=== PATIENT | female | born 1965 | race Two or more races ===

== ENCOUNTER 2019-01-07 17:00 | Outpatient (AMBR) | payer MEDICARE, MEDICAID, SELFPAY ==
--- NOTE | 2018-12-30 15:11 | PT.OIERPT ---
PT OP Initial Eval Patient Information Visit Reasons: cervicalgia Medical Diagnosis: M54.2 M50.30 G89.4 Treatment Dx #1: neck pain Start of Care: 12/30/18 Date of Onset: 1 yr ago Initial Assessment Subjective Pt is 53 yr old female who c/o neck pain and stiffness x1 yr. She has difficulty turning head and 8/10 today and it gets worse by night time. She takes pain meds to control the pain and she is not working. She c/o migraines every other day and has pain with looking down. PLOF: pt didn't have pain with turning the head or ADL's. PMH: HTN, OA almost everywhere sciatica, sleep apnea, R foot bone spur, migraines Imaging: with provider Pt goal: less neck pain feel better Objective C/S AROM: Ext 10% Flexion 75% L rotation: 50 deg, R rot 55 deg B SB: 15 deg C/S compression: pain Distraction: relief TTP: severe of suboccipitals and lower C/S paraspinals around C4-7 UE strength: shoulder MMT limited by neck and upper trapezius pain Boogie's reflex: negative Assessment Pt presentation consistent with advanced OA and DDD of the C/S with very limited extension ROM. Pt has fair C1-2 rotation limited by pain at first resistance and overlying myofascial pain of cervical paraspinals down into the T/S and scapular mm's. Poor rehab potential due to severity of ssx. Short Term and [employer] Goals 1. Ind with HEP 2. Improved extension to 30% of normal 3. Decreased TTP of suboccipitals to lower C/S from severe to mod 4. Pt will turn head L to R x5 with <=4/10 pain Treatment Plan 90 day POC in order to complete visits. Pt requires skilled therapy in order to increase strength, decrease pain and address aforementioned impairments. Rx may consist of Therex, Manual therapy, Neuromuscular re-education, Modalities as indicated-moist heat packs, ice packs, mechanical traction, estim Frequency and Duration 2x a week for 6 weeks Certification Dates: 12/30/18 to 03/30/19 Office Procedures PT Procedures PT Date of Service: 12/30/18 OP PT Eval Mod Complex 30 minutes: Yes
--- NOTE | 2019-01-05 19:37 | PT.ODAYNRPT ---
PT Outpatient Daily Note Date of Service: January 05, 2019 OP Daily Note Visit Reasons: cervicalgia Outpatient Physical Therapy Treatment Date: 01/05/19 Subjective: Continued neck pain, same as time of eval Objective: See F/S for therex MT: STM C/S, light manual distraction x15' Assessment: High tissue irritability of C/S limits manual therapy and therex tolerance. Pt has L C/S rotation as neutral and has difficulty moving head to midline. 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
--- NOTE | 2019-01-07 18:17 | PTNOTE_ITS ---
PT Outpatient Daily Note Date of Service: January 07, 2019 OP Daily Note Visit Reasons: cervicalgia Outpatient Physical Therapy Treatment Date: 01/07/19 Subjective: Some relief since last visit Objective: See F/S for therex MT: STM C/S, light manual distraction x15' Assessment: High tissue irritability of C/S limits manual therapy and therex tolerance. Pt has L C/S rotation as neutral and has difficulty moving head to midline. Plan: Continue per POC Length of Time (minutes) of Treatment: 30 Minutes Office Procedures PT Procedures PT Date of Service: 01/07/19 Therapeutic Exercise 15 minutes: Yes Manual Metal Tile Setter 15 minutes: Yes PT Procedures PT Date of Service: 12/30/18 OP PT Eval Mod Complex 30 minutes: Yes PT Procedures PT Date of Service: 01/05/19 Therapeutic Exercise 15 minutes: Yes Manual Metal Tile Setter 15 minutes: Yes
== END 2019-01-17 23:59 | disposition home or self-care (01) ==
PROVIDERS: PCP Nurse Practitioner; Referring Provider Nurse Practitioner; Visit Provider Nurse Practitioner
DX: M54.2 Cervicalgia (principal); G89.4 Chronic pain syndrome
CPT/HCPCS: 97110; 97140; 97162

== ENCOUNTER 2024-11-09 07:05 | Day surgery (SDC) | payer MEDICARE, MEDICAID, SELFPAY ==
[2024-11-06 14:14] VITALS: BMI 30.8
[2024-11-09] VITALS (9 sets, daily range): BP systolic 117–179; BP diastolic 66–108; PULSE 59–104; RESP 14–28; TEMP 36.4–36.6; O2SAT 95–100; BMI 31.1
[2024-11-09] MEDS: LIDOCAINE JELLY 2% (Urojet) 10 ML TUBE TOP (07:58)
[2024-11-09] MEDS: SODIUM CHLORIDE 0.9% 500 ML 500 ML 20 ML IV (07:58)
[2024-11-09] MEDS: DiphenhydrAMINE INJ 50 MG/ML VIAL 25 MG IVP (07:59)
[2024-11-09] MEDS: MIDAZOLAM INJ 1 MG/ML VIAL 2 ML (ASD USE ONLY) 2 MG IVP (07:59)
[2024-11-09] MEDS: fentaNYL CIT INJ 50 mCg/ML AMP 2ML (ASD USE ONLY) IVP (07:59)
== END 2024-11-09 08:46 | disposition home or self-care (01) ==
PROVIDERS: Referring Provider Surgery; Visit Provider Surgery
PROC: 0DBE8ZX Excision of Large Intestine, Via Natural or Artificial Opening Endoscopic, Diagnostic (ICD-10-PCS; CPT 45380; principal; 2024-11-09 08:00)
DX: K64.1 Second degree hemorrhoids (principal); Z86.0100 Personal history of colon polyps, unspecified
CPT/HCPCS: 45378; J1200; J2250; J3010; J7999

== ENCOUNTER 2025-01-31 18:52 | Inpatient (IN) | payer MEDICARE, MEDICAID, SELFPAY ==
--- NOTE | 2025-01-31 19:46 | XR_ITS ---
Examination: CT abdomen and pelvis without contrast. Coronal 3-D reconstructions. Sagittal 2-D reconstructions. Date and time of exam:January 31, 20252011 hrs. Indications: Onset lower abdominal pain beginning 2 days ago, history kidney stones CTDI: vol (mGy): 10.3 DLP: (mGycm): 527 Technique: Axial images of the abdomen have been obtained, 3 mm slice thickness Intravenous contrast material has not been administered. Low dose protocols were performed. One or more of the following dose reduction techniques were used; automated exposure control, adjustment of the mA and/or KV according to patient size, use of iterative reconstruction technique. Findings: No focal liver or splenic lesions No gallstones No pancreatic or adrenal mass No renal or ureteral calculi, no hydronephrosis Aorta normal size No bowel obstruction Normal appendix No diverticulitis There are mildly fluid distended small bowel loops in the lower abdomen There is a more prominently fluid distended small bowel loop in the pelvis which is incarcerated in a right femoral hernia Bladder intact Impression: Early small bowel obstruction secondary to incarcerated small bowel in a right femoral hernia
--- NOTE | 2025-01-31 19:46 | PD.EDRME ---
Rapid Medical Screening Exam RME Arrival date/time: 01/31/25 18:52 This is a case of 59-year-old female with history of kidney stone came in in the emergency room due to generalized abdominal pain radiating to the right flank with nausea vomiting which started 2 weeks ago worse today due to worsening of the symptoms this patient decided to sought consult here in the emergency ROOM Chief Complaint: Abdominal Pain Time Seen by Provider: 01/31/25 18:54
[2025-01-31] MEDS: KETOROLAC INJ 60 MG/2 ML VIAL 30 MG IM (20:01)
[2025-01-31] MEDS: ONDANSETRON ODT 4 MG TABRAP PO (20:01)
[2025-01-31] MEDS: MORPHINE SULF INJ 4 MG/ML VIAL IM (20:24)
[2025-01-31 20:50] LABS: Basophils # (Auto) 0.0 Thou/mm3 (0.0-0.2); Basophils % (Auto) 1 % (0-2.5); Eosinophils # (Auto) 0.1 Thou/mm3 (0.0-0.5); Eosinophils % (Auto) 1 % (0-10); Hematocrit 41.6 % (36.0-46.0); Hemoglobin 13.1 g/dL (12.0-16.0); Immature Granulocytes Auto 0.03 Thou/mm3 (0.00-0.00); Lymphocytes # (Auto) 1.9 Thou/mm3 (1.0-4.8); Lymphocytes % (Auto) 23 % (10-50); Mean Corpuscular HGB Conc 31.5 g/dl (31.0-37.0); Mean Corpuscular Hemoglobin 26.4 pg (25.0-35.0); Mean Corpuscular Volume 84 fL (80-100); Monocytes # (Auto) 0.6 Thou/mm3 (0.0-0.8); Monocytes % (Auto) 7 % (0-12); Neutrophils # (Auto) 5.8 Thou/mm3 (1.8-7.7); Neutrophils % (Auto) 69 % (37-80); Nucleated Red Blood Cell # 0.00 Thou/mm3 (0.00-0.00); Nucleated Red Blood Cell % 0 /100 WBC (0); Platelet Count 166 Thou/mm3 (140-440); RDW Standard Deviation 40.5 fL (36.4-46.3); Red Blood Count 4.97 Miln/mm3 (4.00-5.20); White Blood Count 8.5 Thou/mm3 (3.6-11.0)
[2025-01-31 21:08] LABS: Alanine Aminotransferase 21 U/L (10-49); Albumin, Serum 4.6 gm/dL (3.5-5.0); Albumin/Globulin Ratio 1.8 (1.2-2.2); Alkaline Phosphatase 97 U/L (46-116); Amylase 76 U/L (30-118); Anion Gap 12 (7-16); Aspartate Amino Transferase 26 U/L (0-34); BUN/Creatinine Ratio 12 Ratio (12-20); Bilirubin,Total 1.3 mg/dL (0.3-1.2); Blood Urea Nitrogen 7 mg/dL (9-23); Calcium 9.6 mg/dL (8.3-10.6); Calcium (Corrected) 9.6 mg/dL (8.5-10.1); Carbon Dioxide 23.0 mMol/L (20.0-31.0); Chloride 106 mMol/L (98-107); Creatinine (Component) 0.6 mg/dL (0.6-1.3); Globulin 2.6 gm/dL (2.3-3.5); Glucose 128 mg/dL (74-106); Osmolality,Calculated 281 (275-295); Potassium 4.3 mMol/L (3.4-5.1); Sodium 141 mMol/L (136-145); Total Protein 7.2 gm/dL (5.7-8.2); eGFR > 60 See Note
[2025-01-31 22:14] VITALS: BP 150/87; PULSE 81; RESP 18; TEMP 36.8; O2SAT 98
--- NOTE | 2025-01-31 23:27 | PD.EDABDPN ---
ED Abdominal Pain RME/HPI General Chief Complaint: Abdominal Pain Stated complaint: SEVERE RLQ ABD PAIN Time seen by provider: 01/31/25 18:54 Arrival date/time: 01/31/25 18:52 RME / HPI RME / HPI narrative: 01/31/25 18:52 This is a case of 59-year-old female with history of kidney stone came in in the emergency room due to generalized abdominal pain radiating to the right flank with nausea vomiting which started 2 weeks ago worse today due to worsening of the symptoms this patient decided to sought consult here in the emergency ROOM Dr. Kingsley?s Main ED Evaluation: 59yo female presenting with ongoing diffuse lower abdominal pain ~2-3 months escalating within the last several days. Reports having abdominal distention and nausea, but no vomiting. Reports having a normal bowel evacuation earlier today. No fever, chills, dysuria. PMH includes RA, gout, HTN, migraine headaches, chronic back pain. PSH hysterectomy, lower endoscopy/polypectomy. Nondrinker, nonsmoker, no illicit drug use. Related Data Home Medications ?Medication ?Instructions ?Recorded ?Confirmed allopurinol 100 mg tablet 1 tab PO TID 11/02/21 11/06/24 amitriptyline 50 mg tablet 1 tab PO HS 11/02/21 11/06/24 folic acid 1 mg tablet 1 tab PO DAILY 11/02/21 11/06/24 oxycodone-acetaminophen 10 mg-325 1 tab PO TID PRN Pain 11/02/21 11/06/24 mg tablet topiramate 25 mg tablet 1 tab PO BID 11/02/21 11/06/24 hyoscyamine sulfate 0.125 mg tablet 0.125 mg feeding tube Q4H PRN 11/06/24 11/06/24 abdominal pain ibuprofen 800 mg tablet 800 mg PO DAILY PRN pain 11/06/24 11/06/24 leflunomide 10 mg tablet 10 mg PO DAILY 11/06/24 11/06/24 lidocaine 5 % topical ointment 1 applic topical TID PRN pain 11/06/24 11/06/24 rosuvastatin 10 mg tablet 10 mg PO DAILY 11/06/24 11/06/24 tizanidine 2 mg tablet 2 mg PO BID PRN muscle spasticity 11/06/24 11/06/24 Allergies Allergy/AdvReac Type Severity Reaction Status Date / Time Penicillins Allergy Severe Hives Verified 01/31/25 18:54 Review of Systems Review of Systems Systems Reviewed: All systems reviewed, normal except as documented Past Medical History Past Medical History NEUROLOGIC: Positive Neurological Disorders and Migraine; Negative Seizures CARDIAC: Positive Cardiac Disorders, Hypercholesterolemia and Hypertension (no meds); Negative Congestive Heart Failure RESPIRATORY: Positive Asthma (IN THE PAST) and Sleep Apnea (no cpap - recalled); Negative Chronic Obstructive Pulmonary Disease (COPD) GASTROINTESTINAL: Positive Gastrointestinal Disorders (heartburn, abdominal pain); Negative Colorectal Cancer GENITOURINARY: Positive Kidney Stones; Negative Genitourinary Disorders or Renal Disease REPRODUCTIVE: Positive Previous Pregnancies (X6); Negative Breast Cancer, Endometriosis, Pelvic Inflammatory Disease or Uterine Prolapse MUSCULOSKELETAL: Positive Musculoskeletal Disorders (SCIATICA), Arthritis, Rheumatoid Arthritis and Gout; Negative Bone Cancer ENT: Positive Cataracts ENDOCRINE: Negative Endocrine Disorders, Diabetes Mellitus Type 1 or Diabetes Mellitus Type 2 HEMATOLOGIC: Positive Anemia; Negative Blood Disorders PSYCHO/SOCIAL: Positive Depression and Anxiety OTHER HISTORY: Positive Falls, Chicken Pox, Measles and Mumps; Negative Hospitalization, Autoimmune Disease, Down Syndrome, Developmental Delay, Shingles, Blood Transfusions, Blood Transfusion Reaction, Anesthesia Reactions, Organ Transplant, Chemotherapy, Radiation Therapy, Hyperbaric Therapy, MRSA, VRSA, Vancomycin-Resistant Enterococci, Clostridium Difficile, Breast Cancer, Cervical Cancer, Colorectal Cancer, Lung Cancer or Ovarian Cancer Family History FAMILY HISTORY: Positive Family Respiratory Disorders (FATHER) and Family Cancer (FATHER, SISTER); Negative Family Psychiatric Problems, Family Cardiac Disorders, Family Gastrointestinal Problems, Family Surgery or Family Anesthesia Reaction Surgical History SURGICAL: Positive Hysterectomy (july 2017); Negative Organ Transplant Social History SMOKING STATUS: Never smoker ED Exam Narrative Physical exam: GENERAL APPEARANCE: alert and oriented x 4, well-developed, well-nourished, nontoxic, no acute distress VITALS: All vitals were reviewed and the pulse ox is 98% on room air, which is normal according to my interpretation. HEENT: Normocephalic, atraumatic; pupils equal, round, reactive to light; EOMI; mucous membranes pink, moist; oropharynx clear NECK: Supple LUNGS: CTABL; no wheezes, no rales, no rhonchi HEART: Regular rate, regular rhythm; normal S1, S2; no murmurs ABDOMEN: non distended; normal BS; soft, RLQ/femoral tenderness, no guarding; on palpation there is bowel prominence noted but appears to be reducible with re-emergence BACK: no CVA tenderness EXTREMITIES: atraumatic; no edema NEUROLOGIC: awake; alert and oriented x4; cranial nerves II-XII grossly intact; no focal sensory or motor deficits PSYCHIATRIC: appropriate mood and affect SKIN: warm, dry, normal color; no rashes Course Quality Measures none Orders Category Date Time Status CT abdomen pelvis wo con Stat Exams 01/31/25 19:46 Completed Amylase Stat Lab 01/31/25 20:27 Completed CBC Stat Lab 01/31/25 20:27 Completed Comprehensive Metabolic Panel Stat Lab 01/31/25 20:27 Completed Lactic Acid [Lactate (Lactic Acid)] Stat Lab 01/31/25 23:44 Ordered Urinalysis Stat Lab 01/31/25 19:46 Ordered Dextrose 5%-0.45% Ns [D5-1/2Ns] 1,000 ml Med 01/31/25 23:43 Active IV 175 mls/hr Ketorolac Inj [Toradol Inj] Med 01/31/25 19:46 Discontinued 30 mg IM X1 ONE Morphine* Inj Med 01/31/25 19:46 Discontinued 4 mg IM X1 ONE Morphine* Inj Med 01/31/25 23:42 Discontinued 4 mg IVP X1 ONE Ondansetron Inj [Zofran Inj] Med 01/31/25 23:42 Discontinued 4 mg IVP X1 ONE Ondansetron Odt [Zofran Odt] Med 01/31/25 19:46 Discontinued 4 mg PO X1 ONE Vital Signs Vital signs: Vital Signs Temperature 98.3 F 01/31/25 22:14 Pulse Rate 81 01/31/25 22:14 Respiratory Rate 18 01/31/25 22:14 Blood Pressure 150/87 H 01/31/25 22:14 Pulse Oximetry (%) 98 01/31/25 22:14 Oxygen Delivery Method Room Air 01/31/25 22:14 Abdominal Pain MDM MDM Narrative MDM Narrative:: Scribe Attestation: 01/31/25 - Nivia Jackson am scribing for and in the presence of Dr. Kingsley. 59yo female presenting with ongoing diffuse lower abdominal pain ~2-3 months escalating within the last several days. Reports having abdominal distention and nausea, but no vomiting. Please see PE findings. Lab markers demonstrate normal WBC count, no anemia, no thrombocytopenia, no left shift or bandemia. Chemistries are unremarkable. UA pending. Patient placed on color television console monitor, IV established, and hydration to correct volume deficit administered. Also given low dose narcotic analgesics/antiemetic with [id number] relief. CT abdomen pelvis showed right femoral hernia with ?evidence of strangulation. This does not appear to correlate clinically. Hospitalist consulted and agrees to admit. General surgeon consulted and will evaluate the patient in the morning. Dx: small bowel obstruction, right femoral hernia Patient data External records reviewed:: [facility] previous records (Per chart review, patient has no relevant previous ED visits.) Clinical information provided by:: patient Social determinants that could affect healthcare access:: none Patient has the following chronic illnesses:: none How is presenting disease/condition affected by chronic disease/condition?: no chronic disease Evaluation data The following diagnostics were reviewed and interpreted by me:: lab results and radiology exam(s) Lab and/or radiology exams considered but not ordered:: none Interpretation Summary: [facility] Report Signed Patient: ROGERS VALLE. Record#: [id number] Birthdate: 1965 Age/Sex: 59 / F Location: [facility] Attending Dr: Ordering Physician: Deana Nicole Date of Service: 01/31/25 Procedure(s): CT abdomen pelvis wo con Accession Number(s): [id number] cc: Matt Schaeffer MD; NO PRIMARY/FAMILY,PHYSICIAN; Deana Nicole~ Examination: CT abdomen and pelvis without contrast. Coronal 3-D reconstructions. Sagittal 2-D reconstructions. Date and time of exam:January 31, 20252011 hrs. Indications: Onset lower abdominal pain beginning 2 days ago, history kidney stones CTDI: vol (mGy): 10.3 DLP: (mGycm): 527 Technique: Axial images of the abdomen have been obtained, 3 mm slice thickness Intravenous contrast material has not been administered. Low dose protocols were performed. One or more of the following dose reduction techniques were used; automated exposure control, adjustment of the mA and/or KV according to patient size, use of iterative reconstruction technique. Findings: No focal liver or splenic lesions No gallstones No pancreatic or adrenal mass No renal or ureteral calculi, no hydronephrosis Aorta normal size No bowel obstruction Normal appendix No diverticulitis There are mildly fluid distended small bowel loops in the lower abdomen There is a more prominently fluid distended small bowel loop in the pelvis which is incarcerated in a right femoral hernia Bladder intact Impression: Early small bowel obstruction secondary to incarcerated small bowel in a right femoral hernia Dictated By: Matt Schaeffer MD Signed By: <Electronically signed by Matt Schaeffer MD in OV> 01/31/250 Medications / Prescriptions Medications or Prescriptions considered but not ordered:: none Medication administrations:: Medication Administration History Dextrose/Sodium Chloride (D5-1/2ns) 1,000 mls @ 175 mls/hr IV .[id number] TITI Stop: 03/02/25 23:42 Discontinued Medications Ketorolac Tromethamine (Ketorolac Inj 60 Mg/2 Ml Vial) 30 mg IM X1 ONE Stop: 01/31/25 19:47 Last Admin: 01/31/25 20:01 Dose: 30 mg Documented By: JEAN-CLAUDE Morphine Sulfate (Morphine Sulf Inj 4 Mg/Ml Vial) 4 mg IM X1 ONE Stop: 01/31/25 19:47 Last Admin: 01/31/25 20:24 Dose: 4 mg Documented By: DESMOND Morphine Sulfate (Morphine Sulf Inj 4 Mg/Ml Vial) 4 mg IVP X1 ONE Stop: 01/31/25 23:43 Ondansetron HCl (Ondansetron Odt 4 Mg Tabrap) 4 mg PO X1 ONE; Protocol Stop: 01/31/25 19:47 Last Admin: 01/31/25 20:01 Dose: 4 mg Documented By: JEAN-CLAUDE Ondansetron HCl (Ondansetron Inj 2 Mg/Ml Inj 2 Ml) 4 mg IVP X1 ONE; Protocol Stop: 01/31/25 23:43 see above Consultations Consultation(s) initiated? (list below): Yes Consultation #1 (Physician, Specialty, Details): Discussed case with the resident physician, attending Dr. Kruse from Hospitalist service regarding admission. Discussed patients ED course, exam findings, labs, and radiology results. The Hospitalist agrees to accept the patient for admission. Time: 23:56 Consultation #2 (Physician, Specialty, Details): Discussed case with Dr. Peterson from general surgery regarding consultation. Discussed patients ED course, exam findings, labs, and radiology results. Time: 00:00 Diagnosis Differential diagnosis abdominal pain: diverticulitis, gastroenteritis and small bowel obstruction Most likely diagnosis given after review of the tests above:: small bowel obstruction, right femoral hernia Admission Indicated Admission indicated?: indicated Admission Request Was there a request for admission?: Yes Admission Attestation Admission request attestation: Discussed case with [] from Hospitalist service regarding admission. Discussed patients ED course, exam findings, labs, and radiology results. The Hospitalist [agrees,declines] to accept the patient for admission. Disposition Plan Disposition Plan: Admit Discharge Plan Plan Patient Disposition: Admit Acute Care w/in Hospital Prescriptions/Referrals Prescriptions/Med Rec: No Action topiramate 25 mg tablet 1 tab PO BID allopurinol 100 mg tablet 1 tab PO TID amitriptyline 50 mg tablet 1 tab PO HS oxycodone-acetaminophen 10-325 mg tablet 1 tab PO TID PRN (Reason: Pain) folic acid 1 mg tablet 1 tab PO DAILY tizanidine 2 mg tablet 2 mg PO BID PRN (Reason: muscle spasticity) Patient Comments: take 1 tablet by mouth twice a day if needed for muscle spasm ibuprofen 800 mg tablet 800 mg PO DAILY PRN (Reason: pain) Patient Comments: take 1 tablet by mouth once daily with food for pain or inflammation leflunomide 10 mg tablet 10 mg PO DAILY Patient Comments: take 1 tablet by mouth once daily hyoscyamine sulfate 0.125 mg tablet 0.125 mg feeding tube Q4H PRN (Reason: abdominal pain) Patient Comments: take 1 tablet by mouth every 4 hours if needed for abdominal pain or cramping 15 rosuvastatin 10 mg tablet 10 mg PO DAILY Patient Comments: take 1 tablet by mouth once daily lidocaine 5 % ointment 1 applic TOPICAL TID PRN (Reason: pain) Patient Comments: apply to affected area three times a day if needed Referrals: No Primary/Family,Physician [Primary Care Provider] - In 1 week Problem List Clinical Impression: Small bowel obstruction, Femoral hernia of right side Patient/Caregiver Discharge Instructions Print Language: Jordanian Stand Alone Forms: Devika Award Info., Patient Portal Info Letter
[2025-02-01] VITALS (13 sets, daily range): BP systolic 101–153; BP diastolic 45–80; PULSE 75–94; RESP 13–20; TEMP 36.3–37.7; O2SAT 95–99; BMI 30.9
[2025-02-01] MEDS: MORPHINE SULF INJ 4 MG/ML VIAL IVP ×2 (00:01→11:42)
[2025-02-01] MEDS: ONDANSETRON INJ 2 MG/ML INJ 2 ML 4 MG IVP (00:02)
[2025-02-01] MEDS: DEXTROSE 5%-0.45% NS 1,000 ML 175 ML IV (00:03)
[2025-02-01 00:13] LABS: Lactate (Lactic Acid) 1.3 mMol/L (0.4-2.0)
[2025-02-01 01:01] LABS: Collection Type, Urine Clean Catch
[2025-02-01 01:23] LABS: Bilirubin,Urine Negative (Negative); Blood,Urine Negative (Negative); Clarity,Urine Clear (Clear/Hazy); Color,Urine Lt-Yellow (Lt Yel-Yel); Glucose, Urine Negative (Negative); Ketones,Urine Negative (Negative); Leukocyte Esterase,Urine Positive (Negative); Nitrite,Urine Negative (Negative); PH,Urine 6.5 (5.0-7.0); Protein,Urine Negative (Neg - Trace); RBC,Urine 3 /hpf (0-3); Specific Gravity,Urine 1.017 (1.001-1.035); Squamous Epithelial Cell,Urine 1 /hpf (0-5); Urobilinogen,Urine Negative mg/dL (0.0-1.0); WBC,Urine 2 /hpf (0-5)
--- NOTE | 2025-02-01 03:23 | PD.RESHP ---
Documentation for date of: 02/01/25 [facility] History of Present Illness History of present illness: This is a 15-year-old female PMHx of gout, rheumatoid arthritis, migraine headache, kidney stones, presented to ED with chronic, and acutely worsening abdominal pain. Reports greater than 3 months of abdominal pain, waxing and waning, with frequent episodes occurring on average 2-3 times a week. Pain is usually generalized, usually related to meals, with onset about an hour after meals. Characterizes it as dull, achy, squeezing in nature. Located in middle of the abdomen, nonradiating. Usually symptoms last about several hours, and resolve spontaneously or with IBUPROFEN. She has been evaluated by her PCP for ventral hernia, failed manual reduction, and has been waiting for CT scan for further evaluation. However, she had an acute onset this started 2 days ago and has been ongoing since. Currently rates her pain at 7 out of 10. Not associated with nausea or vomiting. No constipation or diarrhea. Last bowel movement was this morning was moderate in size and normal in consistency. Denies fever, headaches, chills, weight loss, fall or trauma, chest pain, shortness of breath, palpitations, upper or lower GI bleed, hematuria, dysuria, urinary urgency or frequency. Past Medical History: As above. Past Surgical History: Hysterectomy. Medications: ALLOPURINOL 100 mg TID, TOPIRAMATE 25 mg BID, AMITRIPTYLINE 50 mg HS, IBUPROFEN and OXYCODONE for pain. Allergies: PENICILLINS (hives) Family History: Noncontributory. Social History: Occasional alcohol use. Denies tobacco or drug use. Has 3 children, all natural . ED Course: Afebrile. BP 150/87, HR 81, satting 99% on room air. CBC unremarkable. CMP remarkable for GLUCOSE 128, total bilirubin 1.3. Normal LFTs, renal function, lactic acid, ambulation, and electrolytes. UA negative for UTI. Abdominal CT showed early small bowel obstruction secondary to incarcerated small bowel and a right femoral hernia. General surgery, Dr. Peterson, was consulted by ED physician who recommended admission under hospitalist service for evaluation in the morning for possible surgery. Reason for admission: Early SBO secondary to incarcerated femoral hernia without evidence of strangulation, warranting admission for general surgery evaluation and possible surgery tomorrow morning. Exam Vital Signs Temp Pulse Resp BP Pulse Ox O2 Del Method 98.7 F 94 19 101/45 L 97 Room Air 02/01/25 02:21 02/01/25 02:21 02/01/25 02:21 02/01/25 02:21 02/01/25 02:21 01/31/25 22:14 Narrative Exam GENERAL Normal appearing female, in mild distress secondary to pain. HEENT NCAT.?[place]. Oral mucosa is moist. Patent Nares NECK Supple, nontender, no JVD. CHEST RRR, no m/g/r CTAB, no w/r/r, symmetrical expansion. ABDOMEN Soft, slightly distended, diffusely tender throughout. Unable to appreciate hernia. Bowel sounds present but diminished and slowed. No guarding/rebound tenderness/masses. EXTREMITIES No edema/cyanosis.? SKIN Warm and dry, no jaundice/rashes. NEUROMUSCULAR No lumbar or midline, no CVA, no paraspinal muscle spasm or tenderness. Moves all 4 extremities well, with full ROM and good CSM. CURRAN x4, CN II-XII grossly intact. No focal neurologic deficits. PSYCHIATRY Normal mood and affect, cooperative, no SI or HI or hallucinations. Results: Labs 02/01/25 04:20 02/01/25 04:20 Labs: Short CBC 01/31/25 Range/Units 20:27 WBC 8.5 (3.6-11.0) Thou/mm3 Hgb 13.1 (12.0-16.0) g/dL Hct 41.6 (36.0-46.0) % Plt Count 166 (140-440) Thou/mm3 BMP 01/31/25 20:27 Sodium 141 Potassium 4.3 Chloride 106 Carbon Dioxide 23.0 BUN 7 L Creatinine 0.6 Glucose 128 H Calcium 9.6 Liver Function 01/31/25 Range/Units 20:27 Total Bilirubin 1.3 H (0.3-1.2) mg/dL AST 26 (0-34) U/L ALT 21 (10-49) U/L Alkaline Phosphatase 97 (46-116) U/L Albumin 4.6 (3.5-5.0) gm/dL Urine 02/01/25 Range/Units 00:47 Urine Color Lt-Yellow (Lt Yel-Yel) Urine Clarity Clear (Clear/Hazy) Urine pH 6.5 (5.0-7.0) Ur Specific [place] 1.017 (1.001-1.035) Urine Protein Negative (Neg - Trace) Urine Glucose (UA) Negative (Negative) Quality Measures Quality Measures none Medications Home Medications and Allergies Home Medications ?Medication ?Instructions ?Recorded ?Confirmed ?Type allopurinol 100 mg tablet 1 tab PO TID 11/02/21 11/06/24 History amitriptyline 50 mg tablet 1 tab PO HS 11/02/21 11/06/24 History folic acid 1 mg tablet 1 tab PO DAILY 11/02/21 11/06/24 History oxycodone-acetaminophen 10 mg-325 1 tab PO TID PRN Pain 11/02/21 11/06/24 History mg tablet topiramate 25 mg tablet 1 tab PO BID 11/02/21 11/06/24 History hyoscyamine sulfate 0.125 mg tablet 0.125 mg feeding tube Q4H PRN 11/06/24 11/06/24 History abdominal pain ibuprofen 800 mg tablet 800 mg PO DAILY PRN pain 11/06/24 11/06/24 History leflunomide 10 mg tablet 10 mg PO DAILY 11/06/24 11/06/24 History lidocaine 5 % topical ointment 1 applic topical TID PRN pain 11/06/24 11/06/24 History rosuvastatin 10 mg tablet 10 mg PO DAILY 11/06/24 11/06/24 History tizanidine 2 mg tablet 2 mg PO BID PRN muscle spasticity 11/06/24 11/06/24 History Allergies Allergy/AdvReac Type Severity Reaction Status Date / Time Penicillins Allergy Severe Hives Verified 01/31/25 18:54 Visit Medications Acetaminophen (Acetaminophen 325 Mg Tablet) 650 mg PO Q6H PRN PRN Reason: Fever >100.4 Stop: 03/03/25 03:17 Dextrose/Sodium Chloride (D5-1/2ns) 1,000 mls @ 175 mls/hr IV .[id number] [facility] Stop: 03/02/25 23:42 Last Admin: 02/01/25 00:03 Dose: 175 mls/hr Dextrose/Sodium Chloride (D5-Ns) 1,000 mls @ 80 mls/hr IV .[id number] [facility] Stop: 03/03/25 03:29 Acetaminophen (Ofirmev Inj) 1,000 mg in 100 mls @ 250 mls/hr IV Q6HR PRN PRN Reason: Fever >100.4 or Pain 1-4 Morphine Sulfate (Morphine Sulf Inj 4 Mg/Ml Vial) 4 mg IVP Q4HR PRN PRN Reason: Pain 4-10 Stop: 02/06/25 03:17 Ondansetron HCl (Ondansetron Inj 2 Mg/Ml Inj 2 Ml) 4 mg IVP Q6H PRN; Protocol PRN Reason: NAUSEA OR VOMITING Stop: 03/03/25 03:17 Pantoprazole Sodium (Pantoprazole Inj 40 Mg Vial) 40 mg IVP QDAY TITI Stop: 03/03/25 08:59 Topiramate (Topiramate 25 Mg Tablet) 25 mg PO BID TITI Stop: 03/03/25 08:59 Discontinued Medications Ketorolac Tromethamine (Ketorolac Inj 60 Mg/2 Ml Vial) 30 mg IM X1 ONE Stop: 01/31/25 19:47 Last Admin: 01/31/25 20:01 Dose: 30 mg Morphine Sulfate (Morphine Sulf Inj 4 Mg/Ml Vial) 4 mg IM X1 ONE Stop: 01/31/25 19:47 Last Admin: 01/31/25 20:24 Dose: 4 mg Morphine Sulfate (Morphine Sulf Inj 4 Mg/Ml Vial) 4 mg IVP X1 ONE Stop: 01/31/25 23:43 Last Admin: 02/01/25 00:01 Dose: 4 mg Ondansetron HCl (Ondansetron Odt 4 Mg Tabrap) 4 mg PO X1 ONE; Protocol Stop: 01/31/25 19:47 Last Admin: 01/31/25 20:01 Dose: 4 mg Ondansetron HCl (Ondansetron Inj 2 Mg/Ml Inj 2 Ml) 4 mg IVP X1 ONE; Protocol Stop: 01/31/25 23:43 Last Admin: 02/01/25 00:02 Dose: 4 mg Assessment & Plan Plan This is a 15-year-old female PMHx of gout, rheumatoid arthritis, migraine headache, kidney stones, presented to ED with chronic, and acutely worsening abdominal pain. Admitted for SBO in settings of incarcerated hernia. Small bowel obstruction Incarcerated hernia Presenting with chronic, waxing and waning abdominal pain which has worsened and became more persistent over the last 3 days. Able to tolerate oral intake, having regular bowel movements. Denies nausea or vomiting at this time. CT showed early SBO secondary to incarcerated hernia. General surgery was consulted by ED physician who recommended admission for possible surgery tomorrow morning. Currently afebrile, no leukocytosis. Low suspicion for strangulation given overall picture. ? Recommended NG tube, patient refused currently, states not feeling nauseous. ? N.p.o. ? NS maintenance at 80 cc/8 ? ANTIEMETICS PRN ? Pain control with TYLENOL IV and MORPHINE PRN ? Appreciate recommendation from general surgery Hypertension (resolved) Admission BP 150/87, HR 81, likely in settings of pain. No history of hypertension. ? Continue to monitor Isolated total bilirubinemia Admission TB 1.3, normal LFTs. No signs or symptoms of hemolysis or bililiary pathology. Likely transient in settings of acute illness and/or dehydration. ? Daily labs ? Consider sonography if persistent or worsen Migraine headaches Gout Rheumatoid arthritis Chronic problems. No signs of gout flareups. ? Continue home meds when able, AMITRIPTYLINE 50 mg HS, TOPIRAMATE 25 mg BID, ALLOPURINOL 100 mg TID Health maintenance Diet: NPO GI prophylaxis: PROTONIX DVT prophylaxis: SCD Antibiotics: Not indicated. CODE STATUS: Full code Disposition: Admitted for SBO in settings of incarcerated hernia, pending surgery evaluation Case was discussed with attending physician. Zi Fonseca DO PGY II This document was transcribed using voice recognition technology. Minor inaccuracies may be present. Attending Provider Attestation/Addendum 59-year-old female who was admitted for early small bowel obstruction due to small incarcerated femoral hernia with containing small gracia,l the patient has hypertension and migraine She will be evaluated by general surgery Dr. Deleon in the morning. I discussed with and supervised the resident physician who took care of this patient. I agree with the assessment and plan as above.
[2025-02-01 04:31] LABS: Basophils # (Auto) 0.0 Thou/mm3 (0.0-0.2); Basophils % (Auto) 0 % (0-2.5); Eosinophils # (Auto) 0.1 Thou/mm3 (0.0-0.5); Eosinophils % (Auto) 1 % (0-10); Hematocrit 36.5 % (36.0-46.0); Hemoglobin 11.6 g/dL (12.0-16.0); Immature Granulocytes Auto 0.01 Thou/mm3 (0.00-0.00); Lymphocytes # (Auto) 2.4 Thou/mm3 (1.0-4.8); Lymphocytes % (Auto) 37 % (10-50); Mean Corpuscular HGB Conc 31.8 g/dl (31.0-37.0); Mean Corpuscular Hemoglobin 27.0 pg (25.0-35.0); Mean Corpuscular Volume 85 fL (80-100); Monocytes # (Auto) 0.8 Thou/mm3 (0.0-0.8); Monocytes % (Auto) 12 % (0-12); Neutrophils # (Auto) 3.2 Thou/mm3 (1.8-7.7); Neutrophils % (Auto) 49 % (37-80); Nucleated Red Blood Cell # 0.00 Thou/mm3 (0.00-0.00); Nucleated Red Blood Cell % 0 /100 WBC (0); Platelet Count 197 Thou/mm3 (140-440); RDW Standard Deviation 41.7 fL (36.4-46.3); Red Blood Count 4.30 Miln/mm3 (4.00-5.20); White Blood Count 6.4 Thou/mm3 (3.6-11.0)
[2025-02-01 04:44] LABS: INR 1.1 (0.9-1.3); Partial Thromboplastin Time 22.9 Seconds (22.0-36.0); Prothrombin Time 11.8 Seconds (9.0-12.2)
[2025-02-01 04:49] LABS: Alanine Aminotransferase 16 U/L (10-49); Albumin, Serum 3.9 gm/dL (3.5-5.0); Albumin/Globulin Ratio 2.0 (1.2-2.2); Alkaline Phosphatase 82 U/L (46-116); Anion Gap 8 (7-16); Aspartate Amino Transferase 17 U/L (0-34); BUN/Creatinine Ratio 18 Ratio (12-20); Bilirubin,Total 1.2 mg/dL (0.3-1.2); Blood Urea Nitrogen 9 mg/dL (9-23); Calcium 8.9 mg/dL (8.3-10.6); Calcium (Corrected) 9.0 mg/dL (8.5-10.1); Carbon Dioxide 24.7 mMol/L (20.0-31.0); Chloride 108 mMol/L (98-107); Creatinine (Component) 0.5 mg/dL (0.6-1.3); Estimated Creatinine Clearance 116.1 mL/min (>60); Globulin 2.0 gm/dL (2.3-3.5); Glucose 94 mg/dL (74-106); Magnesium 2.1 mg/dL (1.6-2.6); Osmolality,Calculated 279 (275-295); Phosphorous 3.0 mg/dL (2.4-5.1); Potassium 3.6 mMol/L (3.4-5.1); Sodium 141 mMol/L (136-145); Total Protein 5.9 gm/dL (5.7-8.2); eGFR > 60 See Note
--- NOTE | 2025-02-01 08:14 | PD.SURCONS ---
HPI Consult details Consult date: 02/01/25 Reason for consultation narrative: The patient is a 59-year-old female who was seen in consultation because of a groin hernia that discussed incarceration with possible small bowel obstruction History of present illness: History of present illness revealed that the patient has been having intermittent abdominal pain for 3 months and this pain started yesterday and it was very severe. She denies any history of nausea or vomiting. She had normal bowel movements. She does not know that she has any hernia in her abdomen. Patient's past surgery consisted of hysterectomy. She also has a rheumatoid arthritis for which she is getting infusion with Actemra every 5 weeks. The last 1 was about less than a week ago. Patient's other medical problem consist of migraine headaches and pulmonary hypertension. She was followed by Dr. Momo johnson [place] who is a burr filer. Patient is disabled because of some back injury that happened at work in 2006. But she is fairly active. Past Medical History Past Medical History NEUROLOGIC: Positive Neurological Disorders and Migraine; Negative Seizures CARDIAC: Positive Cardiac Disorders, Hypercholesterolemia and Hypertension (pulmonary hypertension not taking medications for this); Negative Congestive Heart Failure RESPIRATORY: Positive Asthma and Sleep Apnea; Negative Chronic Obstructive Pulmonary Disease (COPD) GASTROINTESTINAL: Positive Gastrointestinal Disorders; Negative Colorectal Cancer GENITOURINARY: Positive Kidney Stones; Negative Genitourinary Disorders or Renal Disease REPRODUCTIVE: Positive Previous Pregnancies; Negative Breast Cancer, Endometriosis, Pelvic Inflammatory Disease or Uterine Prolapse MUSCULOSKELETAL: Positive Musculoskeletal Disorders, Arthritis, Rheumatoid Arthritis and Gout; Negative Bone Cancer ENT: Positive Cataracts ENDOCRINE: Negative Endocrine Disorders, Diabetes Mellitus Type 1 or Diabetes Mellitus Type 2 HEMATOLOGIC: Positive Anemia; Negative Blood Disorders PSYCHO/SOCIAL: Positive Depression and Anxiety OTHER HISTORY: Positive Falls, Chicken Pox, Measles and Mumps; Negative Hospitalization, Autoimmune Disease, Down Syndrome, Developmental Delay, Shingles, Blood Transfusions, Blood Transfusion Reaction, Anesthesia Reactions, Organ Transplant, Chemotherapy, Radiation Therapy, Hyperbaric Therapy, MRSA, VRSA, Vancomycin-Resistant Enterococci, Clostridium Difficile, Breast Cancer, Cervical Cancer, Colorectal Cancer, Lung Cancer or Ovarian Cancer Family History FAMILY HISTORY: Positive Family Respiratory Disorders and Family Cancer; Negative Family Psychiatric Problems, Family Cardiac Disorders, Family Gastrointestinal Problems, Family Surgery or Family Anesthesia Reaction Surgical History SURGICAL: Positive Hysterectomy; Negative Organ Transplant Social History SMOKING STATUS: Never smoker Meds Home Medications and Allergies Home Medications ?Medication ?Instructions ?Recorded ?Confirmed ?Type allopurinol 100 mg tablet 1 tab PO TID 11/02/21 11/06/24 History amitriptyline 50 mg tablet 1 tab PO HS 11/02/21 11/06/24 History folic acid 1 mg tablet 1 tab PO DAILY 11/02/21 11/06/24 History oxycodone-acetaminophen 10 mg-325 1 tab PO TID PRN Pain 11/02/21 11/06/24 History mg tablet topiramate 25 mg tablet 1 tab PO BID 11/02/21 11/06/24 History hyoscyamine sulfate 0.125 mg tablet 0.125 mg feeding tube Q4H PRN 11/06/24 11/06/24 History abdominal pain ibuprofen 800 mg tablet 800 mg PO DAILY PRN pain 11/06/24 11/06/24 History leflunomide 10 mg tablet 10 mg PO DAILY 11/06/24 11/06/24 History lidocaine 5 % topical ointment 1 applic topical TID PRN pain 11/06/24 11/06/24 History rosuvastatin 10 mg tablet 10 mg PO DAILY 11/06/24 11/06/24 History tizanidine 2 mg tablet 2 mg PO BID PRN muscle spasticity 11/06/24 11/06/24 History Allergies Allergy/AdvReac Type Severity Reaction Status Date / Time Penicillins Allergy Severe Hives Verified 01/31/25 18:54 Exam Vital Signs Temp Pulse Resp BP Pulse Ox O2 Del Method 98.3 F 75 16 129/74 97 Room Air 02/01/25 08:09 02/01/25 08:09 02/01/25 08:09 02/01/25 08:09 02/01/25 08:09 02/01/25 08:09 Narrative Exam Physical examination revealed well-built well-nourished female who is 5 feet 2 inches tall weighing 169 pounds with BMI of 30.9. Her vital signs are normal Constitutional Constitutional: no acute distress Routine Abdominal Exam Comments: Examination of the abdomen showed Pfannenstiel incision used for hysterectomy in 2018. Patient does have a palpable right inguinal hernia which is reducible. Routine Rectal Exam Comments: Deferred Routine Exam Comments: Deferred Results Results: Laboratory Laboratory Narrative: Patient's laboratory work is within normal limits Results: Imaging Imaging narrative: CT scan showed large inguinal hernia or femoral hernia with a loop of bowel Assessment & Plan Additional Assessment Additional comments: Impression: Incarcerated right groin hernia Rheumatoid arthritis History of pulmonary hypertension Migraine headache Plan Plan: The hernia has been reduced and there is no evidence of bowel obstruction. I told the patient that she can have the hernia repaired now or later. But there is a possibility she may get another incarceration if she postpone surgery. Even though hernia is large the CT scan definitely demonstrates a loop of bowel in the hernial sac. I have therefore advised repair. Patient is slight risk for surgery but not prohibitive risk. Patient said hernia could be easily repaired and then she could be discharged at this time I do not think she has any bowel obstruction. Thank you very much
--- NOTE | 2025-02-01 09:03 | ESPR_ITS ---
<Statement entered by Kmi Rincon MD - 02/01/25 11:53> Patient examined at bedside. Admitted for SBO secondary to femoral hernia incarceration on the right. Patient is postop repair of right indirect inguinal hernia with mesh plug and patch completed by Dr. Deleon. Patient tolerated procedure well with no evidence of bleeding on physical exam. Is endorsing pain but but well-controlled with medication. Vitals are stable. Labs unremarkable with WBC 6.4. Advance diet as tolerated. Anticipate discharge next 24 hours if she remains stable pain well-controlled and diet is tolerated. The patient's management plan was discussed with my attending physician Dr. Bolanos. Kim Rincon, PGY-2 Documentation for date of: 02/01/25 Subjective Subjective Interval history: Patient examined at bedside. She was seen in the ED this morning by Dr. Deleon with general surgery. Her femoral hernia was reduced in the ED and she was taken to the OR for femoral hernia repair with mesh today. She was seen today at bedside after recovery from the PACU. She denies nausea but endorses surgical pain. HTN and T. bili improved today. Diet advanced to CLD. Surgically cleared for discharge per Dr. Deleon. Exam Vital Signs Temp Pulse Resp BP Pulse Ox O2 Del Method 98.3 F 75 16 129/74 97 Room Air 02/01/25 08:09 02/01/25 08:09 02/01/25 08:09 02/01/25 08:09 02/01/25 08:09 02/01/25 08:09 Narrative Exam General: Patient laying in bed, conversational, no acute distress. HEENT: Mucosa moist. Pupils are equal Cardiovascular: RRR via radial pulse. Extremities are warm and well perfused. Respiratory: No tachypnea or labored speech. Abdomen: Soft, appropriately TTP. Surgical incision dressing is clean/dry/intact. Skin: Dry, no rashes or erythema, betadine staining remains on the abdomen. Musculoskeletal: No gross injuries. Neuro: Alert and oriented x3. No focal neuro deficits. Psych: Normal affect and mood Objective Labs 02/01/25 04:20 02/01/25 04:20 Labs: Laboratory Results - last 24 hr 01/31/25 01/31/25 02/01/25 00:04 20:27 00:47 WBC 8.5 RBC 4.97 Hgb 13.1 Hct 41.6 MCV 84 MCH 26.4 MCHC 31.5 RDW Std Deviation 40.5 Plt Count 166 Neut % (Auto) 69 Lymph % (Auto) 23 [place] % (Auto) 7 Eos % (Auto) 1 Baso % (Auto) 1 Neut # (Auto) 5.8 Lymph # (Auto) 1.9 [place] # (Auto) 0.6 Eos # (Auto) 0.1 Baso # (Auto) 0.0 Immature Gran # (Auto) 0.03 H Absolute Nucleated RBC 0.00 Immature Gran % 0 Nucleated RBC % 0 PT INR APTT Sodium 141 Potassium 4.3 Chloride 106 Carbon Dioxide 23.0 Anion Gap 12 BUN 7 L Creatinine 0.6 Estim Creat Clear Calc Not Performed. eGFR > 60 BUN/Creatinine Ratio 12 Glucose 128 H Calculated Osmolality 281 Lactic Acid 1.3 Calcium 9.6 Corrected Calcium 9.6 Phosphorus Magnesium Total Bilirubin 1.3 H AST 26 ALT 21 Alkaline Phosphatase 97 Total Protein 7.2 Albumin 4.6 Globulin 2.6 Albumin/Globulin Ratio 1.8 Amylase 76 Ur Collection Type Clean Catch Urine Color Lt-Yellow Urine Clarity Clear Urine pH 6.5 Ur Specific [place] 1.017 Urine Protein Negative Urine Glucose (UA) Negative Urine Ketones Negative Urine Blood Negative Urine Nitrite Negative Urine Bilirubin Negative Urine Urobilinogen (Auto) Negative Ur Leukocyte Esterase Positive Urine RBC 3 Urine WBC 2 Ur Squamous Epith Cells 1 Urine Bacteria None 02/01/25 04:20 WBC 6.4 RBC 4.30 Hgb 11.6 L Hct 36.5 MCV 85 MCH 27.0 MCHC 31.8 RDW Std Deviation 41.7 Plt Count 197 D Neut % (Auto) 49 Lymph % (Auto) 37 [place] % (Auto) 12 Eos % (Auto) 1 Baso % (Auto) 0 Neut # (Auto) 3.2 Lymph # (Auto) 2.4 [place] # (Auto) 0.8 Eos # (Auto) 0.1 Baso # (Auto) 0.0 Immature Gran # (Auto) 0.01 H Absolute Nucleated RBC 0.00 Immature Gran % 0 Nucleated RBC % 0 PT 11.8 INR 1.1 APTT 22.9 Sodium 141 Potassium 3.6 D Chloride 108 H Carbon Dioxide 24.7 Anion Gap 8 BUN 9 Creatinine 0.5 L Estim Creat Clear Calc 116.1 eGFR > 60 BUN/Creatinine Ratio 18 Glucose 94 Calculated Osmolality 279 Lactic Acid Calcium 8.9 Corrected Calcium 9.0 Phosphorus 3.0 Magnesium 2.1 Total Bilirubin 1.2 AST 17 ALT 16 Alkaline Phosphatase 82 Total Protein 5.9 Albumin 3.9 D Globulin 2.0 L Albumin/Globulin Ratio 2.0 Amylase Ur Collection Type Urine Color Urine Clarity Urine pH Ur Specific [place] Urine Protein Urine Glucose (UA) Urine Ketones Urine Blood Urine Nitrite Urine Bilirubin Urine Urobilinogen (Auto) Ur Leukocyte Esterase Urine RBC Urine WBC Ur Squamous Epith Cells Urine Bacteria Quality Measures Quality Measures none Assessment & Plan Assessment Current Active Medications: Generic Name Dose Route Start Last Admin Trade Name Freq PRN Reason Stop Dose Admin Amitriptyline HCl 50 mg 02/01/25 21:00 Amitriptyline Hcl 25 Mg Tablet PO 03/03/25 20:59 HS TITI Dextrose/Sodium Chloride 1,000 mls @ 175 mls/hr 01/31/25 23:43 02/01/25 00:03 D5-1/2ns IV 03/02/25 23:42 175 mls/hr .Q5H43M TITI Administration Dextrose/Sodium Chloride 1,000 mls @ 80 mls/hr 02/01/25 03:30 D5-Ns IV 03/03/25 03:29 .[id number] TITI Acetaminophen 1,000 mg in 100 mls @ 250 mls/hr 02/01/25 03:18 Ofirmev Inj IV Q6HR PRN Fever >100.4 or Pain 1-3 Morphine Sulfate 4 mg 02/01/25 03:18 Morphine Sulf Inj 4 Mg/Ml Vial IVP 02/06/25 03:17 Q4HR PRN Pain 4-10 Ondansetron HCl 4 mg 02/01/25 03:18 Ondansetron Inj 2 Mg/Ml Inj 2 Ml IVP 03/03/25 03:17 Q6H PRN NAUSEA OR VOMITING Protocol Pantoprazole Sodium 40 mg 02/01/25 09:00 Pantoprazole Inj 40 Mg Vial IVP 03/03/25 08:59 QDAY TITI Topiramate 25 mg 02/01/25 09:00 Topiramate 25 Mg Tablet PO 03/03/25 08:59 BID TITI Plan This is a 59-year-old female PMHx of gout, rheumatoid arthritis, migraine headache, kidney stones, presented to ED with chronic, and acutely worsening abdominal pain. Admitted for SBO in settings of incarcerated hernia. Small bowel obstruction Incarcerated femoral hernia (resolved) Presenting with chronic, waxing and waning abdominal pain which has worsened and became more persistent over the last 3 days. Able to tolerate oral intake, having regular bowel movements. Denies nausea or vomiting at this time. CT showed early SBO secondary to incarcerated femoral hernia. General surgery was consulted by ED physician, was able to reduce the femoral hernia in the ED today, and she was subsequently taken to the OR for definitive right femoral hernia repair with mesh. Patient now recovering in her room. ? Advance to Full liquid diet tonght, regular diet tomorrow morning if tolerating. ? ANTIEMETICS PRN ? Pain control with home [place] prn. - Surgically cleared for discharge, appreciate Dr. Deleon. Hypertension (resolved) Admission BP 150/87, HR 81, likely in settings of pain. No history of hypertension. BP continues to be stable. ? Continue to monitor Isolated total bilirubinemia (resolved) Admission TB 1.3, normal LFTs. No signs or symptoms of hemolysis or bililiary pathology. Likely transient in settings of acute illness and/or dehydration. Normalized today. ? Daily labs ? Consider sonography if persistent or worsen Migraine headaches Gout Rheumatoid arthritis Chronic problems. No signs of gout flareups. ? Continue home meds when able, AMITRIPTYLINE 50 mg HS, TOPIRAMATE 25 mg BID, ALLOPURINOL 100 mg TID Health maintenance Diet: Full liquid diet GI prophylaxis: PROTONIX DVT prophylaxis: SCD Antibiotics: Not indicated. CODE STATUS: Full code Disposition: Post surgical, likely DC home tomorrow pending pain control and toleration of diet. Patient's plan and care discussed with my attending, Dr. Bolanos. Hayden Plummer DO PGY-1 ([facility] Resident) Attending Provider Attestation/Addendum I have discussed and was present for the essential components of the history, physical examination, diagnosis, and treatment plan with the resident. I agree with the patient's care as documented by the resident and amended herein by me. Joe Bolanos DO. Although this document has been carefully reviewed, there may still be some phonetic and other typographical errors. These errors are purely grammatical due to imperfections in the software program and should not be construed in any way to compromise the substance of the patient's medical care during this visit. Patient seen and evaluated this AM. Patient now postop day 0 for incarcerated hernia repair surgery with Dr. Deleon. Labs unremarkable, no complications with surgery, will continue to monitor overnight, likely discharge home tomorrow on 02/02 pending specialist recommendations.
--- NOTE | 2025-02-01 10:12 | ESOP_ITS ---
Date of Procedure 02/01/25 Pre Op Diagnosis Incarcerated right inguinal hernia with bowel obstruction Post Op Diagnosis Same Procedure Repair of the right indirect inguinal hernia with Marlex mesh plug and patch Findings Patient is found to have a large indirect inguinal hernia through which a loop of bowel has come out. This was reduced before surgery and she was taken to the operating room Procedure Description Patient was given general anesthesia and the lower abdomen and the groins were prepped with ChloraPrep solution. Timeout was performed. Standard right groin incision was made and the external oblique was reached. This was opened and I encircled the hernia which was going into the labial region. I the hernia from the round ligament which was clamped and tied with 2-0 chromic suture ligature. The hernia was easily reduced but the internal ring was very patulous. This is where the loop of bowel came out but it was not seen during the surgery. I took a large PerFix plug and placed it in the internal ring and attached the edges with a 2-0 Prolene to hold the mesh in place. Then I placed 2 x 4 onlay mesh over the entire inguinal floor and attached it medially with 2- 0 Prolene to the pubic tubercle. Then it was tucked underneath the external oblique which was later closed with 2-0 Vicryl. Subcutaneous tissue was closed with 3-0 plain and injected large amounts of half percent Marcaine for analgesia skin was closed with 4-0 Monocryl subcuticular stitch and a dressing was applied. Patient tolerated the procedure well. Anesthesia GET[employer] Implants PerFix plug large, 2 x 4 Marlex mesh for onlay Pathology / specimen None Estimated Blood Loss 40 Surgeon Jorden Peterson MD Surgical Staff Operation Date: 02/01/25 08:45 Case Staff Anesthesiologist: Alfredito Hernandez RN First Assistant: Mary Woodward
--- NOTE | 2025-02-01 10:50 | SUR.PHASEI ---
1050: Pt. AAOx4, vitals stable, breathing unlabored, no complaint of pain or nausea, dressing to lower ABD CDI, no active bleed noted, gave report to Kecia LEONARD prior to transfer to room 365. Family made aware of transfer to room. Pt. transferred with all her personal belongings.
--- NOTE | 2025-02-01 15:33 | PC.NURSE ---
Spoke with Dr. Plummer at 1530 regarding patient being discharged. Dr. Moya visited the patient and said she could be discharged if Dr. Plummer and his team agreed. Dr. Plummer stated that he will discuss with his team and get back to nursing.
--- NOTE | 2025-02-01 17:20 | PC.NURSE ---
Spoke with Dr Plummer, him and his team decided to keep patient overnight. They would like patient to go from IV pain meds to PO pain meds. Patient is okay with whatever doctors recommend.
--- NOTE | 2025-02-01 19:00 | PC.NURSE ---
Report received, pt resting visiting with family at side no current complaints.
[2025-02-01] MEDS: AMITRIPTYLINE HCL 25 MG TABLET 50 MG PO (20:48)
[2025-02-01] MEDS: TOPIRAMATE 25 MG TABLET PO (20:48)
--- NOTE | 2025-02-01 22:59 | PC.NURSE ---
SCD's removed pt walking in room.
[2025-02-02] VITALS: BP 122/62; PULSE 79; RESP 18; TEMP 36.5; O2SAT 95
[2025-02-02 04:00] VITALS: BP 154/93; PULSE 88; RESP 17; TEMP 36.7; O2SAT 93
[2025-02-02 05:37] LABS: Basophils # (Auto) 0.0 Thou/mm3 (0.0-0.2); Basophils % (Auto) 0 % (0-2.5); Eosinophils # (Auto) 0.0 Thou/mm3 (0.0-0.5); Eosinophils % (Auto) 0 % (0-10); Hematocrit 35.7 % (36.0-46.0); Hemoglobin 11.4 g/dL (12.0-16.0); Immature Granulocytes Auto 0.01 Thou/mm3 (0.00-0.00); Lymphocytes # (Auto) 1.9 Thou/mm3 (1.0-4.8); Lymphocytes % (Auto) 24 % (10-50); Mean Corpuscular HGB Conc 31.9 g/dl (31.0-37.0); Mean Corpuscular Hemoglobin 27.4 pg (25.0-35.0); Mean Corpuscular Volume 86 fL (80-100); Monocytes # (Auto) 0.8 Thou/mm3 (0.0-0.8); Monocytes % (Auto) 10 % (0-12); Neutrophils # (Auto) 5.3 Thou/mm3 (1.8-7.7); Neutrophils % (Auto) 66 % (37-80); Nucleated Red Blood Cell # 0.00 Thou/mm3 (0.00-0.00); Nucleated Red Blood Cell % 0 /100 WBC (0); Platelet Count 193 Thou/mm3 (140-440); RDW Standard Deviation 42.1 fL (36.4-46.3); Red Blood Count 4.16 Miln/mm3 (4.00-5.20); White Blood Count 8.0 Thou/mm3 (3.6-11.0)
[2025-02-02 06:04] LABS: Alanine Aminotransferase 12 U/L (10-49); Albumin, Serum 3.8 gm/dL (3.5-5.0); Albumin/Globulin Ratio 1.7 (1.2-2.2); Alkaline Phosphatase 75 U/L (46-116); Anion Gap 9 (7-16); Aspartate Amino Transferase 13 U/L (0-34); BUN/Creatinine Ratio 18 Ratio (12-20); Bilirubin,Total 1.5 mg/dL (0.3-1.2); Blood Urea Nitrogen 9 mg/dL (9-23); Calcium 9.2 mg/dL (8.3-10.6); Calcium (Corrected) 9.4 mg/dL (8.5-10.1); Carbon Dioxide 25.8 mMol/L (20.0-31.0); Chloride 109 mMol/L (98-107); Creatinine (Component) 0.5 mg/dL (0.6-1.3); Estimated Creatinine Clearance 116.1 mL/min (>60); Globulin 2.3 gm/dL (2.3-3.5); Glucose 113 mg/dL (74-106); Magnesium 2.2 mg/dL (1.6-2.6); Osmolality,Calculated 286 (275-295); Phosphorous 2.9 mg/dL (2.4-5.1); Potassium 3.8 mMol/L (3.4-5.1); Sodium 144 mMol/L (136-145); Total Protein 6.1 gm/dL (5.7-8.2); eGFR > 60 See Note
[2025-02-02 08:00] VITALS: BP 138/76; PULSE 83; RESP 17; TEMP 36.9; O2SAT 96
[2025-02-02] MEDS: TOPIRAMATE 25 MG TABLET PO (08:12)
[2025-02-02 08:25] VITALS: PULSE 86; RESP 19; RESP 95
--- NOTE | 2025-02-02 14:08 | ESDS_ITS ---
<Statement entered by Bill Craft MD - 02/08/25 09:12> I reviewed above note and agree with findings and plans. I have also personally examined the patient with medicine team and went over assessment and plan with medical team including internal affairs investigator and resident physician. <Statement entered by Maricel Collins MD - 02/03/25 15:58> I discussed with and supervised the internal affairs investigator physician who took care of this patient. I personally saw and examined the patient and discussed the assessment and plan with the entire medicine team, including my attending Dr. Craft, I agree with most of the assessment and plan as documented below Maricel Collins M.D. PGY-3 Planned Discharge Date 02/02/25 DS: Providers Provider Date of admission: 02/01/25 03:19 Primary care physician: Physician Paula Primary/Family Admitting Provider: Zi Fonseca MD Attending Provider on Admission: Bill Craft MD Consults: 02/01/25 03:21 Consult to General Surgery Stat Comment: SBO, encarcerated hernia Consulting Provider: Jorden Peterson Attending Provider on DC: Bill Craft MD Discharging Provider: Hayden Plummer MD DS: Diagnosis Problem List Completed Was Problem List Reviewed/Reconciled?: Yes Hospital Course Hospital Course Hospital course: This is a 59-year-old female PMHx of gout, rheumatoid arthritis, migraine he adache, kidney stones, presented to ED on 02/01 with chronic, and acutely worsening abdominal pain that has been ongoing for 3 months. The pain is waxing and waning, with frequent episodes occurring on average 2-3 times a week. Pain is usually generalized, usually related to meals, with onset about an hour after meals. Abdominal CT showed early small bowel obstruction secondary to incarcerated small bowel and a right femoral hernia. She was seen in the ED that morning by Dr. Deleon with general surgery and her femoral hernia was reduced. Dr. Deleon felt this was more of an inguinal hernia as opposed to a femoral hernia, but offered surgery due to high risk of recurrence. She agree to surgery was subsequently taken to the OR for repair of the right indirect inguinal hernia with Marlex mesh plug and patch. Over the course of that afternoon, her diet was advanced and IV pain medication was switched over to PO pain medication. She tolerated diet advancement without return of nausea, vomiting, abdominal pain, or bloating, and was able to pass gas. Her pain was well controlled with PO pain meds and she felt ready to go home. She was subsequently discharged on 02/02 in stable condition with instructions to follow up in surgery clinic. Patient's plan and care discussed with my attending, Dr. Craft. Hayden Plummer DO PGY-1 ([facility] Resident) Discharge Diagnoses #Small bowel obstruction (resolved) #Incarcerated inguinal hernia (resolved) Time Spent with Patient Time attestation: Total time spent providing and/or coordinating discharge services: Time spent: Greater than 30 minutes Exam Vital Signs Temp Pulse Resp BP Pulse Ox O2 Del Method O2 Flow Rate 98.5 F 86 19 138/76 H 96 Room Air 4 02/02/25 08:00 02/02/25 08:25 02/02/25 08:25 02/02/25 08:00 02/02/25 08:00 02/02/25 08:00 02/01/25 10:25 Narrative Exam General: Patient laying in bed, conversational, no acute distress. HEENT: Mucosa moist. Pupils are equal Cardiovascular: Normal S1 and S2 heard without murmur or rub. Regular rate and rhythm. Respiratory: Lungs clear to auscultation bilaterally without wheezes or crackles. Abdomen: Soft, appropriately TTP. Surgical incision dressing is clean/dry/intact. Skin: Dry, no rashes or erythema, or bruising. Musculoskeletal: No gross injuries. Neuro: Alert and oriented x3. No focal neuro deficits. Psych: Normal affect and mood Discharge Plan Plan Patient Disposition: HOME (Self Care) Care Plan Goals: Walk and move as tolerated. Gradually return to physical activity. Avoid lifting heavy objects for at least 4 weeks or until cleared by surgeon. Keep surgery area clean and dry. Use acetaminophen, Ibuprofen or Dupree as needed for pain control. Follow up with Dr. Peterson ([facility]) on Saturday02/10/25 Please see your Primary Care Provider in 1-2 weeks. Return to the ED if your symptoms worsen. Prescriptions/Referrals Prescriptions/Med Rec: Continued topiramate 25 mg tablet 1 tab PO BID allopurinol 100 mg tablet 1 tab PO DAILY amitriptyline 50 mg tablet 1 tab PO HS oxycodone-acetaminophen 10-325 mg tablet 1 tab PO Q6H PRN (Reason: Pain) tizanidine 2 mg tablet 2 mg PO BID PRN (Reason: muscle spasticity) Patient Comments: take 1 tablet by mouth twice a day if needed for muscle spasm leflunomide 10 mg tablet 10 mg PO DAILY Patient Comments: take 1 tablet by mouth once daily rosuvastatin 10 mg tablet 10 mg PO DAILY Patient Comments: take 1 tablet by mouth once daily lidocaine 5 % ointment 1 applic TOPICAL TID PRN (Reason: pain) Patient Comments: apply to affected area three times a day if needed ibuprofen 600 mg tablet 600 mg PO Q8H PRN (Reason: pain) Patient Comments: Take 1 Tablet every eight hours, as needed for pain / inflammatio... (REFER TO PRESCRIPTION NOTES). Referrals: No Primary/Family,Physician [Primary Care Provider] Jorden Peterson MD [Physician, General Surgery] Patient/Caregiver Discharge Instructions Other Discharge Activity Instructions:: Walk and move as tolerated. Gradually return to physical activity. Avoid lifting heavy objects for at least 4 weeks or until cleared by surgeon. Keep surgery area clean and dry. Use acetaminophen, Ibuprofen or Dupree as needed for pain control. Follow up with Dr. Peterson ([facility]) on Saturday02/10/25 Please see your Primary Care Provider in 1-2 weeks. Return to the ED if your symptoms worsen. Education Materials: Having Hernia Surgery: Patch Repair, Obstruction Intestinal, ED Hernia (Adult) Print Language: Ghanaian Stand Alone Forms: Devika Award Info., Patient Portal Info Letter Discharge Order Discharge Orders: Discharge (Routine); Ordered 02/02/25 Ordered By: Maricel Collins Quality Discharge Quality Measures VTE prophylaxis
== END 2025-02-02 11:31 | disposition home or self-care (01) | DRG 351 ==
LOC: SERX 23:57 → SERHOLD 02-01 04:51 → S3NX 02-01 10:58
PROVIDERS: Nurse Practitioner Family; Surgery; Emergency Provider Emergency Medicine; Visit Provider Internal Medicine
DX: K40.30 Unilateral inguinal hernia, with obstruction, without gangrene, not specified as recurrent (principal); R17 Unspecified jaundice; Z87.442 Personal history of urinary calculi; M06.9 Rheumatoid arthritis, unspecified; M10.9 Gout, unspecified; G43.909 Migraine, unspecified, not intractable, without status migrainosus; I10 Essential (primary) hypertension; Z90.710 Acquired absence of both cervix and uterus; Z79.899 Other long term (current) drug therapy; I27.20 Pulmonary hypertension, unspecified
CPT/HCPCS: 36415; 74176; 80053; 81001; 82150; 83605; 83735; 84100; 85025; 85610; 85730; 96374; 96375; 96376; 99284; A4217; A4649; C1781; J0131; J1100; J1171; J1885; J2250; J2270; J2405; J2470; J2704; J3010; J3490; J7042; Q0162; A9270